=== PATIENT | female | born 1990 | race American Indian/Alaskan Native ===

== ENCOUNTER 2017-12-31 00:28 | Inpatient (IN) | payer MEDICARE ==
[2017-12-31] MEDS ORDERED: NORCO PO PRN (00:35)
[2017-12-31] MEDS ORDERED: D5W/0.45% NACL/KCL 20 MEQ 20 MEQ/1,000 ML BAG IV SCH (01:00)
[2017-12-31] MEDS ORDERED: ROBAXIN 1,000 MG in NACL 0.9% 250ML 250 ML IV SCH (01:00)
[2017-12-31] MEDS: LACTATED RINGERS 1,000 ML IV SCH ×2 (04:21→16:01)
[2017-12-31] MEDS: TORADOL IV SCH ×4 (04:21→18:13)
[2017-12-31] MEDS: ROBAXIN 1,000 MG in NACL 0.9% 250ML 250 ML IV SCH ×2 (04:51→14:15)
[2017-12-31] MEDS: LEVSIN SL SL SCH ×3 (05:28→23:20)
[2017-12-31] MEDS: REGLAN IV PRN ×2 (05:28→16:02)
[2017-12-31] MEDS: MORPHINE IV PRN ×2 (05:28→10:24)
[2017-12-31] MEDS: MYLICON PO PRN (05:29)
[2017-12-31 12:11] LABS: Basophils % (Auto) 0.6 % (0.0-1.8); Eosinophils # (Auto) 0.2 K/mm3 (0.0-0.4); Eosinophils % (Auto) 4.1 % (0.0-4.3); Hematocrit 34.8 % (30.3-42.9); Lymphocytes # (Auto) 2.2 K/mm3 (1.2-5.4); Lymphocytes % (Auto) 39.6 % (13.4-35.0); Mean Corpuscular HGB Conc 32 % (30-34); Mean Corpuscular Volume 80 fl (79-97); Monocytes # (Auto) 0.5 K/mm3 (0.0-0.8); Monocytes % (Auto) 8.7 % (0.0-7.3); Platelet Count 292 K/mm3 (140-440); Red Blood Count 4.37 M/mm3 (3.65-5.03); Red Cell Distribution Width 17.3 % (13.2-15.2)
[2017-12-31 12:18] LABS: Alanine Aminotransferase 18 units/L (7-56); Albumin 3.3 g/dL (3.9-5); BUN/Creatinine Ratio 17; Blood Urea Nitrogen 12 mg/dL (7-17); Calcium 8.4 mg/dL (8.4-10.2); Hemolysis Index 7; Mean Corpuscular Hemoglobin 25 pg (28-32)
[2017-12-31] MEDS: ZOFRAN IV PRN ×2 (13:09→22:18)
[2017-12-31] MEDS: LOVENOX SUB-Q SCH (13:09)
[2017-12-31] MEDS ORDERED: ROBAXIN PO PRN (14:03)
[2017-12-31] MEDS: DILAUDID IV PRN ×2 (14:14→22:17)
[2017-12-31] MEDS ORDERED: XOPENEX IH PRN (14:14)
[2017-12-31] MEDS ORDERED: FLEET PR ONE ×3 (15:00→22:00)
[2017-12-31] MEDS ORDERED: CEPHULAC PO ONE ×2 (15:00→18:30)
--- NOTE | 2017-12-31 16:28 | History and Physical Report ---
History of Present Illness Date of admission: 12/31/17 03:22 History of present illness: 27 y.o. F known to Dr. Farah service presented to an outside facility c/o intense abdominal pain that was crampy in nature. Ct abd/pelvis conducted at outside facility did not show any obstruction of small bowel. The gall bladder was dilated and she has stool throughout the colon. She was transfered to our facility. Her last bm was Monday when she was discharge (4 days ago). She is passing flatus. She was seen in the office Monday (2 days) ago. She was having abdominal cramping and with regurg of food. Her symptoms became worse and she went to the er the following day. She was vomiting several times at home. She felt very nauseas. The reglan usually helps with her nausea but it was not helping. She had similar abdominal cramping and vomiting prior to surgery. She was being followed by a gi doctor. After surgery 11/28/17 her symptoms became much worse. She was previously admitted from 12/19 to 12/26. She was discharged with bentyl and reglan and was tolerating liquids at that time. At time of admission she was given hyocasamine which alleviated almost all of her nausea and she has been tolerating liquids since. Past History Past Medical History: GERD, other (fibromyalgia, morbid obesity, depression, asthma, chronic pain) Past Surgical History: Other (Lap RYNGB, 11/28/17: lap GJ revision poss bp revision) Social history: no significant social history Family history: no significant family history Medications and Allergies Allergies Allergy/AdvReac Type Severity Reaction Status Date / Time aspirin Allergy Severe Anaphylaxis Verified 12/20/17 10:45 Penicillins Allergy Severe Anaphylaxis Verified 12/20/17 10:45 iodine Allergy Intermediate Unknown Verified 11/23/17 12:11 shellfish derived AdvReac Intermediate Unknown Verified 11/23/17 12:11 Home Medications Medication Instructions Recorded Confirmed Last Taken Type ALBUTEROL Inhaler 2 puff INHALATION PRN PRN 05/11/17 12/31/17 2 Days Ago History ~12/29/17 ALBUTEROL NEB's 93 mcg INHALATION PRN PRN 05/11/17 12/31/17 2 Days Ago History ~12/29/17 Klonopin 1 mg PO BID 05/11/17 12/31/17 2 Days Ago History ~12/29/17 LaMICtal 150 mg PO DAILY 05/11/17 12/31/17 2 Days Ago History ~12/29/17 Singulair 2 puff INHALATION PRN PRN 05/11/17 12/31/17 2 Days Ago History ~12/29/17 Wellbutrin 300 mg PO DAILY 05/11/17 12/31/17 2 Days Ago History ~12/29/17 Xolair 150 mg SUB-Q QMONTH 05/11/17 12/31/17 12/11/17 History Brexpiprazole [Rexulti] 1 mg PO DAILY 11/23/17 12/31/17 2 Days Ago History ~12/29/17 Cetirizine HCl [Allergy Relief] 10 mg PO DAILY 11/23/17 12/31/17 12/26/17 History Methocarbamol [Robaxin TAB] 750 mg PO Q8H PRN 11/23/17 12/31/17 2 Days Ago History ~12/29/17 oxyCODONE /ACETAMINOPHEN [Percocet 1 tab PO Q6HR PRN 11/23/17 12/31/17 2 Days Ago History 5/325] ~12/29/17 predniSONE [Deltasone] 20 mg PO QDAY PRN 11/23/17 12/31/17 12/26/17 History Active Meds: Active Medications Acetaminophen/Hydrocodone Bitart (Crawford) 7.5 mg PO Q4H PRN PRN Reason: Pain, Moderate (4-6) Bupropion HCl (Wellbutrin) 150 mg PO DAILY COUNTS INCLUDE 234 BEDS AT THE [facility] Clonazepam (Klonopin) 1 mg PO BID COUNTS INCLUDE 234 BEDS AT THE [facility] Enoxaparin Sodium (Lovenox) 40 mg SUB-Q Q24H COUNTS INCLUDE 234 BEDS AT THE [facility] Last Admin: 12/31/17 13:09 Dose: 40 mg Hydromorphone HCl (Dilaudid) 0.5 mg IV Q3H PRN PRN Reason: Pain , Severe (7-10) Last Admin: 12/31/17 14:14 Dose: 0.5 mg Hyoscyamine (Levsin Sl) 0.125 mg SL BID COUNTS INCLUDE 234 BEDS AT THE [facility] Last Admin: 12/31/17 05:28 Dose: 0.125 mg Potassium Chloride/Dextrose/Sod Cl (D5w/0.45% Nacl/Kcl 20 Meq) 20 meq in 1,000 mls @ 150 mls/hr IV DIRECT ENEIDA Lactated Ringer's (Lactated Ringers) 1,000 mls @ 150 mls/hr IV DIRECT ENEIDA Last Admin: 12/31/17 16:01 Dose: 150 mls/hr Ketorolac Tromethamine (Toradol) 30 mg IV Q6H COUNTS INCLUDE 234 BEDS AT THE [facility] Stop: 01/02/18 00:59 Last Admin: 12/31/17 10:25 Dose: 30 mg Lamotrigine (Lamictal) 150 mg PO QHS COUNTS INCLUDE 234 BEDS AT THE [facility] Levalbuterol HCl (Xopenex) 1.25 mg IH PRN PRN PRN Reason: Shortness Of Breath Methocarbamol (Robaxin) 750 mg PO Q8H PRN PRN Reason: Muscle Spasm Metoclopramide HCl (Reglan) 10 mg IV Q6H PRN PRN Reason: Nausea And Vomiting Last Admin: 12/31/17 16:02 Dose: 10 mg Morphine Sulfate (Morphine) 2 mg IV Q4H PRN PRN Reason: Pain, Moderate (4-6) Last Admin: 12/31/17 10:24 Dose: 2 mg Ondansetron HCl (Zofran) 4 mg IV Q4HR PRN PRN Reason: Nausea And Vomiting Last Admin: 12/31/17 13:09 Dose: 4 mg Pregabalin (Lyrica) 50 mg PO QDAY COUNTS INCLUDE 234 BEDS AT THE [facility] Quetiapine Fumarate (Seroquel) 100 mg PO BID COUNTS INCLUDE 234 BEDS AT THE [facility] Simethicone (Mylicon) 80 mg PO Q6H PRN PRN Reason: Gas pain Last Admin: 12/31/17 05:29 Dose: 80 mg Review of Systems All systems: negative - Constitutional weakness, poor appetite, no fever, no chills, no sweats, no malaise, no lethargy , no chronic headaches - EENT Ears, nose, mouth and throat: no ear pain, no tinnitis, no decreased hearing, no nasal discharge - Cardiovascular no chest pain, no orthopnea, no palpitations, no rapid/irregular heart beat, no edema, no syncope - Respiratory no cough, no cough with sputum, no excessive sputum, no hemoptysis - Gastrointestinal other (per hpi) - Genitourinary Genitourinary: no menorrhagia, no dysuria, no urinary frequency, no urgency, no stress incontinence - Muskuloskeletal myalgias, no neck stiffness, no neck pain, no shooting arm pain, no arm numbness /tingling, no low back pain, no shooting leg pain - Integumentary no rash, no pruritis, no redness, no sores, no wounds, no jaundice - Neurological no weakness, no parathesias, no numbness, no tingling - Psychiatric anxiety - Endocrine no polydipsia, no polyuria - Hematologic/Lymphatic no easy bruising, no easy bleeding Exam Vital Signs Temp Pulse Resp BP Pulse Ox 98.2 F 99 H 20 111/77 100 12/31/17 03:43 12/31/17 03:43 12/31/17 03:43 12/31/17 03:43 12/31/17 03:43 - General physical appearance Positive: well developed, well nourished, no distress - Eyes Positive: PERRL - Respiratory Positive: normal expansion, normal respiratory effort, clear to percussion - Cardiovascular Rhythm: regular - Extremities Extremities: No edema - Breasts Breasts: deferred - Abdomen Abdomen: Present: soft, other (obese, minimal tenderness mid abd. distended. minimal luq pain. no rebound no guarding ) - Rectum Rectum: normal spincter tone, no hemorrhoids, no tenderness, other (no stool in the vault) - Integumentary no rash, no growths, no abnormal pigmentation - Neurologic Neurologic: alert and oriented to time, place and person, motor strength and sensation are grossly intact Results - Labs 12/31/17 10:54 12/31/17 10:54 Abnormal lab results 12/31/17 12/31/17 Range/Units 10:54 10:54 MCH 25 L (28-32) pg RDW 17.3 H (13.2-15.2) % Lymph % (Auto) 39.6 H (13.4-35.0) % Wilkes % (Auto) 8.7 H (0.0-7.3) % Total Protein 5.9 L (6.3-8.2) g/dL Albumin 3.3 L (3.9-5) g/dL Diabetes panel 12/31/17 Range/Units 10:54 Sodium 142 (137-145) mmol/L Potassium 4.1 (3.6-5.0) mmol/L Chloride 104.4 (98-107) mmol/L Carbon Dioxide 23 (22-30) mmol/L BUN 12 (7-17) mg/dL Creatinine 0.7 (0.7-1.2) mg/dL Glucose 71 (65-100) mg/dL Calcium 8.4 (8.4-10.2) mg/dL AST 17 (5-40) units/L ALT 18 (7-56) units/L Alkaline Phosphatase 93 (35-129) units/L Total Protein 5.9 L (6.3-8.2) g/dL Albumin 3.3 L (3.9-5) g/dL Calcium panel 12/31/17 Range/Units 10:54 Calcium 8.4 (8.4-10.2) mg/dL Phosphorus 3.50 (2.5-4.5) mg/dL Albumin 3.3 L (3.9-5) g/dL Pituitary panel 12/31/17 Range/Units 10:54 Sodium 142 (137-145) mmol/L Potassium 4.1 (3.6-5.0) mmol/L Chloride 104.4 (98-107) mmol/L Carbon Dioxide 23 (22-30) mmol/L BUN 12 (7-17) mg/dL Creatinine 0.7 (0.7-1.2) mg/dL Glucose 71 (65-100) mg/dL Calcium 8.4 (8.4-10.2) mg/dL Adrenal panel 12/31/17 Range/Units 10:54 Sodium 142 (137-145) mmol/L Potassium 4.1 (3.6-5.0) mmol/L Chloride 104.4 (98-107) mmol/L Carbon Dioxide 23 (22-30) mmol/L BUN 12 (7-17) mg/dL Creatinine 0.7 (0.7-1.2) mg/dL Glucose 71 (65-100) mg/dL Calcium 8.4 (8.4-10.2) mg/dL Total Bilirubin 0.40 (0.1-1.2) mg/dL AST 17 (5-40) units/L ALT 18 (7-56) units/L Alkaline Phosphatase 93 (35-129) units/L Total Protein 5.9 L (6.3-8.2) g/dL Albumin 3.3 L (3.9-5) g/dL - Imaging CT scan - abdomen: image reviewed (imaging from outside facility reviewd: stool throughout colon) Assessment and Plan 27 y.o. F 27-year-old female status post bariatric surgery most recently November 28 status post GJ revision with hiatal hernia repair now returns with nausea vomiting abdominal pain: 1. Nausea and vomiting/cramping: -pt does not have an elevated WBC, she is normotensive and nontachycaridic. She had similar symptoms prior to surgery as well. she is passing gas. Irritable bowel syndrome likey the cause of her symptoms. Her symptoms improved with the use of levsin (medication used for IBS). She will continue to take this medication BID as needed. If her symptoms do not improve or her vs become unstable, consider dx lap. -Constipation seen on imaging also relates to the IBS picture. Rectal vault did not have stool present. She will be given a fleets enema. lactuose -follow up for bm. lactic acid - 1.8 - wnl 2. hx of depression: continue home medications 3. Fibromyalgia- chronic pain: percocet/robaxin 4. glaucoma: eye drops per home meds Gi/dvt proph: protonix and lovenox
[2017-12-31] MEDS: LYRICA PO SCH (18:00)
[2017-12-31] MEDS ORDERED: LATANOPROST 0.005% OU SCH (18:00)
[2017-12-31] MEDS: WELLBUTRIN PO SCH (18:05)
[2017-12-31] MEDS ORDERED: LaMICtal PO SCH (22:00)
[2018-01-01] MEDS: TORADOL IV SCH ×3 (00:44→12:58)
[2018-01-01] MEDS: MYLICON PO PRN (00:50)
[2018-01-01] MEDS: DILAUDID IV PRN ×2 (06:26→14:53)
[2018-01-01] MEDS: ZOFRAN IV PRN (06:26)
[2018-01-01 08:46] LABS: Basophils % (Auto) 0.6 % (0.0-1.8); Eosinophils # (Auto) 0.2 K/mm3 (0.0-0.4); Eosinophils % (Auto) 4.6 % (0.0-4.3); Hematocrit 33.7 % (30.3-42.9); Hemoglobin 10.7 gm/dl (10.1-14.3); Lymphocytes # (Auto) 1.3 K/mm3 (1.2-5.4); Lymphocytes % (Auto) 30.3 % (13.4-35.0); Mean Corpuscular HGB Conc 32 % (30-34); Mean Corpuscular Volume 80 fl (79-97); Monocytes # (Auto) 0.4 K/mm3 (0.0-0.8); Monocytes % (Auto) 9.4 % (0.0-7.3); Platelet Count 265 K/mm3 (140-440); Red Blood Count 4.24 M/mm3 (3.65-5.03); Red Cell Distribution Width 17.4 % (13.2-15.2)
[2018-01-01 08:47] LABS: Mean Corpuscular Hemoglobin 25 pg (28-32)
[2018-01-01 09:00] LABS: BUN/Creatinine Ratio 10; Blood Urea Nitrogen 6 mg/dL (7-17); Calcium 8.1 mg/dL (8.4-10.2); Hemolysis Index 5
[2018-01-01] MEDS: MORPHINE IV PRN (09:16)
[2018-01-01] MEDS: LYRICA PO SCH (10:52)
[2018-01-01] MEDS: WELLBUTRIN PO SCH (10:52)
[2018-01-01] MEDS: LEVSIN SL SL SCH (10:53)
[2018-01-01] MEDS: REGLAN IV PRN (11:00)
[2018-01-01] MEDS: LOVENOX SUB-Q SCH (12:59)
[2018-01-01 15:06] VITALS: BP 111/56
--- NOTE | 2018-01-01 15:53 | Progress Note ---
Assessment and Plan 27 y.o. F 27-year-old female status post bariatric surgery most recently November 28 status post GJ revision with hiatal hernia repair now returns with nausea vomiting abdominal pain: 1. Nausea and vomiting/cramping: Resolved Started on hyocasamine. Feeling much better. 2. hx of depression: continue home medications 3. Fibromyalgia- chronic pain: percocet/robaxin 4. glaucoma: eye drops per home meds Gi/dvt proph: protonix and lovenox dc today with hyocosamine: tried to put a preauthorization for med since insurance does not cover it. Subjective Narrative: Pt feeling better. She is able to tolerate liquids and has minimal nausea. She had several bms. Objective Vital Signs - 12hr 01/01/18 01/01/18 01/01/18 05:01 06:56 09:16 Temperature 98.0 F Pulse Rate 88 Respiratory 18 18 20 Rate Blood Pressure 106/73 Blood Pressure [Left] O2 Sat by Pulse 100 Oximetry 01/01/18 01/01/18 01/01/18 09:46 11:45 12:58 Temperature 98.4 F Pulse Rate 96 H Respiratory 18 20 20 Rate Blood Pressure Blood Pressure 114/76 [Left] O2 Sat by Pulse 100 Oximetry 01/01/18 01/01/18 01/01/18 13:28 14:53 15:05 Temperature 98.4 F Pulse Rate 75 Respiratory 18 20 20 Rate Blood Pressure Blood Pressure 111/56 [Left] O2 Sat by Pulse 99 Oximetry - General physical appearance well developed, well nourished, no distress - Respiratory normal expansion, normal respiratory effort - Abdomen soft, other (obese, incisions healed. minimal discomfort with palp of mid abd. no rebound no guarding ) - Neurologic normal coordination, normal sensation - Musculoskeletal normal posture - Psychiatric oriented to time, oriented to person, oriented to place, speech is normal - Labs 01/01/18 08:21 01/01/18 08:21 Diabetes panel 01/01/18 Range/Units 08:21 Sodium 141 (137-145) mmol/L Potassium 4.3 (3.6-5.0) mmol/L Chloride 107.6 H (98-107) mmol/L Carbon Dioxide 24 (22-30) mmol/L BUN 6 L (7-17) mg/dL Creatinine 0.6 L (0.7-1.2) mg/dL Glucose 84 (65-100) mg/dL Calcium 8.1 L (8.4-10.2) mg/dL Calcium panel 01/01/18 Range/Units 08:21 Calcium 8.1 L (8.4-10.2) mg/dL Phosphorus 3.90 (2.5-4.5) mg/dL Pituitary panel 01/01/18 Range/Units 08:21 Sodium 141 (137-145) mmol/L Potassium 4.3 (3.6-5.0) mmol/L Chloride 107.6 H (98-107) mmol/L Carbon Dioxide 24 (22-30) mmol/L BUN 6 L (7-17) mg/dL Creatinine 0.6 L (0.7-1.2) mg/dL Glucose 84 (65-100) mg/dL Calcium 8.1 L (8.4-10.2) mg/dL Adrenal panel 01/01/18 Range/Units 08:21 Sodium 141 (137-145) mmol/L Potassium 4.3 (3.6-5.0) mmol/L Chloride 107.6 H (98-107) mmol/L Carbon Dioxide 24 (22-30) mmol/L BUN 6 L (7-17) mg/dL Creatinine 0.6 L (0.7-1.2) mg/dL Glucose 84 (65-100) mg/dL Calcium 8.1 L (8.4-10.2) mg/dL
--- NOTE | 2018-01-01 15:58 | Discharge Summary ---
Providers - Providers Date of Admission: 12/31/17 03:22 Attending physician: VALERIA ARELLANO Primary care physician: ALEXANDR COWART Hospitalization Condition: Good Hospital course: 27 y.o. F admitted with nausea and vomiting and abdominal pain. She once she was able to have a bowel movement with several different medication she felt a littler better. The hyocasamine she was started on greatly improved her nausea. She was able to eat and drink after using the medication. emergent reasons for severe abdominal pain for a pt w a hx of gastric bypass were ruled out with ct abd/pelvis and lactic acid. Disposition: DC- TO HOME OR SELFCARE Core Measure Documentation - Palliative Care Palliative Care/ Comfort Measures: Not Applicable - Core Measures Any of the following diagnoses?: none Exam - Physical Exam Narrative exam: no change from prior - Constitutional Vitals: Temp Pulse Resp BP Pulse Ox 98.4 F 75 20 111/56 99 01/01/18 15:05 01/01/18 15:05 01/01/18 15:05 01/01/18 15:05 01/01/18 15:05 Plan Additional Instructions: Drink plenty of water. Take colace everyday. Use the new hyosyamine medication twice a day as needed for nausea and vomiting. May take reglan in initiion to it. Use an enema if you have not had a bm in 2 days. Follow up in office in 2-3 weeks Follow up with: ALEXANDR COWART MD [Primary Care Provider] - 7 Days
== END 2018-01-01 17:05 | disposition home or self-care (01) | DRG 392 ==
LOC: 3A 00:28 → UNDOADMIN 00:28 → 3B-SURG 03:22
PROVIDERS: ADMIT Specialist; ATTEND Specialist
DX: K58.8 Other irritable bowel syndrome (principal); Z68.41 Body mass index [BMI] 40.0-44.9, adult; R11.2 Nausea with vomiting, unspecified; M79.7 Fibromyalgia; H40.9 Unspecified glaucoma; E66.01 Morbid (severe) obesity due to excess calories; Z71.3 Dietary counseling and surveillance; Z88.6 Allergy status to analgesic agent; Z88.0 Allergy status to penicillin; Z91.041 Radiographic dye allergy status; Z91.013 Allergy to seafood; Z79.51 Long term (current) use of inhaled steroids; F32.9 Major depressive disorder, single episode, unspecified; G89.29 Other chronic pain; Z98.84 Bariatric surgery status
CPT/HCPCS: 36415; 80048; 80053; 82140; 83735; 84100; 85025; J1170; J1650; J1885; J2270; J2405; J2765; J2800; J7050; J7120